=== PATIENT | male | born 1990 | race African-American/Black ===

== ENCOUNTER 2024-03-12 23:11 | Emergency (ER) | payer BC, OTHER ==
[2024-03-12 23:20] VITALS: BP 148/90; PULSE 72; RESP 14; TEMP 98.2; BMI 45.0
[2024-03-13] MEDS ORDERED: TETRACAINE 0.5% OPHTH SOLN 2 ML BOTTLE ONE (01:30)
[2024-03-13] MEDS ORDERED: FLUORESCEIN NA 1 EA STRIP ONE (01:31)
[2024-03-13] MEDS ORDERED: IBUPROFEN 600 MG TABLET (FP) PO ONE ×2 (02:01→02:02)
== END 2024-03-13 02:00 | disposition home or self-care (01) ==
LOC: FER 23:11
DX: S01.111A Laceration without foreign body of right eyelid and periocular area, initial encounter (principal); S05.11XA Contusion of eyeball and orbital tissues, right eye, initial encounter; W50.0XXA Accidental hit or strike by another person, initial encounter; Y93.67 Activity, basketball
CPT/HCPCS: 99283-25